=== PATIENT | male | born 1950 | race Caucasian/White ===

== ENCOUNTER 2016-10-30 14:47 | Inpatient (IN) | payer MEDICARE, OTHER ==
[~2016-10-30] VITALS: Ht 170.2 cm; Wt 84.0 kg
[~2016-10-30 14:47] MED LIST: ACET-73 PO; ASPI-605 PO; ATOR10TA PO; BISA10SU8 RC; CARB200T PO; CRAN3875 PO; DEXT15DR6 EACHEYE; DOCU-25 PO; FERR1TAB44 PO; GUAI-671 PO; LEVE250T2 PO; LEVOTHYROXINE INJ 100 MCG VIAL IV SCH; MAGN2400 PO; METH1TAB PO; NA P133E RC; OMEP20TA68 PO; POLY255P2 PO; SENN-18 PO; SERT50TA PO; TAMS0.4C34 PO; mylanta
--- NOTE | 2016-10-30 14:47 | NUR ---
BIB PRIVATE EMT FROM [facility] FOR UPPER EXTREMITY TWITCHING . PLACED ON MONITOR. AWAITING MD ORDER
--- NOTE | 2016-10-30 15:00 | NUR ---
MAT #20 IV ACCESS. BLOOD SAMPLE COLLECTED SENT TO LAB
[2016-10-30 15:13] LABS: BASOPHILS # (AUTO) 0.2 /CMM (0.0-0.2); BASOPHILS % (AUTO) 2.5 % (0.0-2.0); EOSINOPHILS % (AUTO) 0.5 % (0.0-6.0); HEMATOCRIT 36 % (39-51); HEMOGLOBIN 11.4 g/dL (13.5-17.5); LYMPHOCYTES # (AUTO) 0.9 /CMM (0.8-4.8); LYMPHOCYTES % (AUTO) 13.5 % (20.0-44.0); MEAN CORPUSCULAR HEMOGLOBIN 32 PG (26.0-33.0); MEAN CORPUSCULAR HGB CONC 32 g/dl (31.0-36.0); MEAN CORPUSCULAR VOLUME 99 fL (80-96); MONOCYTES # (AUTO) 0.2 /CMM (0.1-1.30); MONOCYTES % (AUTO) 2.7 % (2.0-12.0); NEUTROPHILS # (AUTO) 5.4 /CMM (1.8-8.9); NEUTROPHILS % (AUTO) 80.8 % (43.0-81.0); PLATELET COUNT (AUTO) 83 /CMM (150-450); RDW COEFFICIENT OF VARIATION 18.6 (11.5-15.0); WHITE BLOOD COUNT (AUTO) 6.7 K/uL (4.3-11.0)
[2016-10-30] MEDS ORDERED: FLUT16SP16 NS (15:19)
[2016-10-30] MEDS ORDERED: LEVE250T2 PO (15:19)
[2016-10-30] MEDS ORDERED: MAGN400O6 PO (15:19)
[2016-10-30] MEDS ORDERED: ALBU1.257 IH (15:19)
[2016-10-30] MEDS ORDERED: SERT25TA5 PO (15:19)
[2016-10-30] MEDS ORDERED: MULT-659 PO (15:19)
[2016-10-30] MEDS ORDERED: POLY15DR40 EACHEYE (15:19)
[2016-10-30] MEDS ORDERED: BISA10SU8 RC (15:19)
[2016-10-30 15:23] LABS: CALCIUM, SERUM 9.2 mg/dL (8.5-10.1); CREATININE 0.6 mg/dL (0.6-1.3); POTASSIUM 4.7 mmol/L (3.5-5.1)
[2016-10-30 15:29] LABS: ALBUMIN 2.8 g/dL (3.4-5.0); BILIRUBIN,TOTAL 0.3 mg/dL (0.2-1.0); TOTAL PROTEIN, SERUM 6.7 g/dL (6.4-8.2)
--- NOTE | 2016-10-30 15:30 | NUR ---
SANABRIA CATH IN PLACE NO OUTPUT MD AWARE.
--- NOTE | 2016-10-30 15:58 | NUR ---
EKG IN PROGRESS
[2016-10-30] MEDS ORDERED: IV NS 0.9% 500 ML BAG IV ONE (16:00)
--- NOTE | 2016-10-30 16:17 | NUR ---
PATIENT WILL BE ADMITTED INTO [facility]-1.
[2016-10-30 16:19] LABS: BAND % (MANUAL) 8 % (0.0-5.0); LYMPHOCYTES % (MANUAL) 15 % (16-48); NEUTROPHILS % (MANUAL) 74 (42-76)
--- NOTE | 2016-10-30 16:19 | NUR ---
PAGED DR TORRES.
[2016-10-30 16:20] LABS: BASOPHILS % (MANUAL) 0 % (0.0-2.0); EOSINOPHILS % (MANUAL) 1 % (0-4); MONOCYTES % (MANUAL) 2 % (0-11.0)
[2016-10-30 16:35] LABS: TROPONIN I < 0.017 ng/mL (0.00-0.056)
--- NOTE | 2016-10-30 16:35 | NUR ---
GAVE REPORT TO MAINE TORRES [facility] DR VELASCO ADMITTING SEPSIS DX
[2016-10-30 17:00] LABS: THYROID STIMULATING HORMONE 5.893 uIU/mL (0.358-3.74)
[2016-10-30] MEDS ORDERED: IV NS 0.9% 1,000 ML BAG IV ONE ×3 (17:00→18:00)
[2016-10-30] MEDS ORDERED: CLINDAMYCIN 900 MG in IV D5W 50 ML IV ONE (17:00)
[2016-10-30] MEDS ORDERED: VANCOMYCIN 1 GM in IV D5W 250 ML IV ONE ×2 (17:00→18:00)
--- NOTE | 2016-10-30 17:03 | NUR ---
CALLED [employer], DIRECTOR OF OUTSIDE SALES WAS PAGED.
[2016-10-30 17:08] LABS: APPEARANCE,URINE Clear (CLEAR); BILIRUBIN,URINE SMALL (NEGATIVE); BLOOD, URINE Moderate Ery/uL (NEGATIVE); COLOR,URINE Yellow (YELLOW); KETONES,URINE Negative (NEGATIVE); LEUKOCYTE ESTERASE ,URINE Small (NEGATIVE); NITRITE, URINE Positive (NEGATIVE); PH,URINE 5.5 (5.0-8.0); PROTEIN,URINE 100 mg/dl (NEGATIVE); UGLUCOSE Negative (NEGATIVE); UROBILINOGEN,URINE 0.2 EU/dL (0.2)
[2016-10-30 17:53] LABS: BACTERIA,URINE Moderate /HPF (None Seen); SQUAMOUS EPITHELIAL CELL,UR Moderate /HPF (None Seen)
[2016-10-30] MEDS ORDERED: ONDANSETRON HCL/PF 4 MG/2 ML VIAL IVP PRN (18:00)
[2016-10-30] MEDS ORDERED: ACETAMINOPHEN 325 MG TABLET PO PRN (18:00)
[2016-10-30] MEDS ORDERED: BISACODYL SUPP (10 MG) 10 MG/SUPP.RECT SUPP.RECT RC PRN (18:00)
[2016-10-30] MEDS ORDERED: MAGNESIUM HYDROXIDE 30 ML UDC PO PRN (18:00)
[2016-10-30] MEDS ORDERED: LORAZEPAM INJ 2 MG/ML VIAL IVP PRN (18:00)
[2016-10-30] MEDS ORDERED: ALBUTEROL HALF STRENGTH 1.25 MG/3 ML VIAL.NEB IH PRN (18:00)
[2016-10-30] MEDS ORDERED: NA PHOS,M-B/NA PHOS,DI-BA 1 EA ENEMA RC PRN (18:00)
[2016-10-30 18:10] VITALS: BP 138/80
[2016-10-30] MEDS ORDERED: FEE PK DOSING 1 MIN EA MC ONE (18:23)
--- NOTE | 2016-10-30 18:30 | NUR ---
PATIENT RECEIVED FROM ER VIA STRETCHER NONVERBAL,FAMILY AT BEDSIDE,NEW IV STATED AT AT LEFT HAND #22.IVF COTINUED .
--- NOTE | 2016-10-30 18:31 | NUR ---
WILL ENDORSE TO NIGHT RN FOR CONTINUITY OF ADMISSION PROCESS AND ORDERS.
[2016-10-30 18:52] VITALS: BP 138/80
[2016-10-30] MEDS: POLYVINYL ALCOHOL 15 ML BOTTLE EACHEYE SCH (19:07)
[2016-10-30] MEDS: methylPREDNISolone SOD SUCC 125 MG/2ML VIAL IV SCH (19:07)
[2016-10-30 19:08] LABS: IRON, SERUM 66 ug/dl (50-175); TOTAL IRON BINDING CAPACITY 251 ug/dl (250-450)
[2016-10-30] MEDS: PIPERACILLIN /TAZOBACTAM 3.375 G in IV D5W 50 ML IV SCH (19:34)
--- NOTE | 2016-10-30 19:50 | NUR ---
RN INITIAL NOTE; PT ON THE BED RESTING WITHOUT ANY DISTRESS . PT IS NON -VERBAL , RESPONSE TO PAIN . BREATHING EVEN AND UNLABORED ON 3 LPM VIA NC. TELE MONITOR SHOWING SB HR 50 AT THIS TIME . LW 22 G PERIPHERAL IV INTACT AND PATENT . F/C INTACT WITH MINIMAL OUTPUT AT THIS TIME . TEMP. NOTED 92.7 F AT THIS TIME, BEAR HUGER ON . BED IN THE LOWEST/LOCKED POSITION, SAFETY MEASURES APPLIED. WILL TURN AND REPOSITION Q2H . WILL CONTINUE TO MONITOR .
[2016-10-30 20:00] VITALS: BP 128/78
[2016-10-30] MEDS: VANCOMYCIN 0.75 GM in IV D5W 250 ML IV SCH ×2 (20:00→20:47)
--- NOTE | 2016-10-30 20:50 | NUR ---
RN NOTE; VANCOMYCIN DOSE @ 2000 HELD DUE TO TOO CLOSE TO GIVE FROM PREVIOUS DOSE . WILL GIVE 0400 AM DOSE .
[2016-10-30] MEDS: LEVETIRACETAM (250 MG) 250 MG TABLET PO SCH (21:00)
[2016-10-30] MEDS: ATORVASTATIN 10 MG TABLET PO SCH (22:00)
[2016-10-31] VITALS: BP 131/77
[2016-10-31] MEDS: PIPERACILLIN /TAZOBACTAM 3.375 G in IV D5W 50 ML IV SCH ×4 (02:47→21:18)
[2016-10-31 04:00] VITALS: BP 93/56
[2016-10-31] MEDS: VANCOMYCIN 0.75 GM in IV D5W 250 ML IV SCH ×3 (04:51→19:38)
[2016-10-31 06:45] LABS: BASOPHILS % (AUTO) 0.3 % (0.0-2.0); EOSINOPHILS % (AUTO) 0.2 % (0.0-6.0); HEMATOCRIT 32 % (39-51); HEMOGLOBIN 10.4 g/dL (13.5-17.5); LYMPHOCYTES # (AUTO) 0.9 /CMM (0.8-4.8); MEAN CORPUSCULAR HEMOGLOBIN 33 PG (26.0-33.0); MEAN CORPUSCULAR HGB CONC 33 g/dl (31.0-36.0); MEAN CORPUSCULAR VOLUME 100 fL (80-96); MONOCYTES # (AUTO) 0.1 /CMM (0.1-1.30); MONOCYTES % (AUTO) 2.6 % (2.0-12.0); NEUTROPHILS % (AUTO) 79.9 % (43.0-81.0); PLATELET COUNT (AUTO) 78 /CMM (150-450); RDW COEFFICIENT OF VARIATION 18.6 (11.5-15.0)
--- NOTE | 2016-10-31 07:04 | NUR ---
RN EOS NOTE; PT REMAINED STABLE DURING THE SHIFT. NO ANY DISTRESS NOTED. SR 60s ON TELE MONITOR , WITH ADEQUATE URINE OUTPUT. SAFETY MEASURES APPLIED. TOTAL CARE RENDERED .WILL ENDORSE TO NEXT SHIFT RN FOR CONTINUITY OF CARE.
--- NOTE | 2016-10-31 07:10 | NUR ---
[facility] RN NOTE: RECEIVED PATIENT RESTING COMFORTABLY IN BED. PT IS NONVERBAL, RESPIRATIONS EVEN AND UNLABORED WITH NO SOB NOTED ON 3L O2 VIA NC. ON TELE WITH SR 64. LW 22G AND RH 20G INTACT AND PATENT. FC DRAINING TO GRAVITY WITH YELLOW URINE. WARMING BLANKET ON PT. SKIN WARM TO TOUCH. BED LOW, LOCKED WITH CALL LIGHT WITHIN REACH. ALL NEEDS MET AND ANTICIPATED. WILL CONT TO MONITOR.
[2016-10-31 07:14] LABS: ALBUMIN 2.5 g/dL (3.4-5.0); BILIRUBIN,TOTAL 0.2 mg/dL (0.2-1.0); CALCIUM, SERUM 8.6 mg/dL (8.5-10.1); CREATINE KINASE MB 2.8 ng/mL (0-3.6); CREATININE 0.6 mg/dL (0.6-1.3); POTASSIUM 4.6 mmol/L (3.5-5.1); TOTAL PROTEIN, SERUM 6.3 g/dL (6.4-8.2)
[2016-10-31 07:50] LABS: INR 0.97 (0.87-1.13); PROTHROMBIN TIME 10.4 SECS (9.5-12.7)
[2016-10-31 08:00] VITALS: BP_SYST 107; BP_SYST 96; BP_SYST 97; BP_DIAS 57; BP_DIAS 70
[2016-10-31] MEDS: DOCUSATE SODIUM 100 MG CAPSULE PO SCH (08:05)
[2016-10-31] MEDS: TAMSULOSIN 0.4 MG CAP.SR.24H PO SCH (08:05)
[2016-10-31] MEDS: SERTRALINE HCL 25 MG TABLET PO SCH (08:05)
[2016-10-31] MEDS: ASPIRIN EC 81 MG TABLET.DR PO SCH (08:05)
[2016-10-31] MEDS: LEVETIRACETAM (250 MG) 250 MG TABLET PO SCH ×2 (08:06→21:00)
[2016-10-31] MEDS: POLYVINYL ALCOHOL 15 ML BOTTLE EACHEYE SCH ×2 (08:21→17:29)
[2016-10-31] MEDS: FLUTICASONE PROPIONATE 16 GM BOTTLE NS SCH (08:21)
[2016-10-31] MEDS: Z GUARD REMEDY 2 OZ OINT TP SCH (08:22)
[2016-10-31] MEDS: LEVOTHYROXINE INJ 100 MCG VIAL IV SCH (08:22)
[2016-10-31] MEDS: methylPREDNISolone SOD SUCC 125 MG/2ML VIAL IV SCH ×3 (08:41→17:31)
[2016-10-31] MEDS: PANTOPRAZOLE 40 MG VIAL IV SCH (08:41)
--- NOTE | 2016-10-31 08:59 | NUR ---
[facility] RN NOTE: ENCHO TECH AT BEDSIDE.
[2016-10-31] MEDS ORDERED: CARBAMAZEPINE 200 MG TABLET PO SCH (09:00)
[2016-10-31] MEDS ORDERED: Z GUARD REMEDY 2 OZ OINT TP SCH (09:00)
--- NOTE | 2016-10-31 09:00 | NUR ---
[facility] RN NOTE: BODY TEMPERATURE WITHIN NORMAL RANGE. WARMING BLANKET HELD.
--- NOTE | 2016-10-31 09:45 | NUR ---
[facility] RN NOTE: PATIENT TAKEN TO RADIOLOGY FOR CT HEAD.
[2016-10-31 09:57] LABS: LYMPHOCYTES % (MANUAL) 12 % (16-48); MONOCYTES % (MANUAL) 2 % (0-11.0); NEUTROPHILS % (MANUAL) 86 (42-76)
--- NOTE | 2016-10-31 10:20 | NUR ---
[facility] RN NOTE: PATIENT BACK FROM RADIOLOGY.
[2016-10-31 12:00] VITALS: BP 123/69
--- NOTE | 2016-10-31 12:30 | NUR ---
TRANSCRIPTIONIST NOTE: VERIFIED WITH PHARMACY, OK TO GIVE 1200 VANCOMYCIN IV. LAB ORDER FOR LATER ON TODAY.
[2016-10-31 16:00] VITALS: BP 133/86
--- NOTE | 2016-10-31 16:30 | NUR ---
COMBAT ENGINEER NOTE: FINISHER OPERATOR AT BEDSIDE.
[2016-10-31] MEDS: IV D5/ 0.9% NACL 1,000 ML IV PRN (17:34)
--- NOTE | 2016-10-31 18:43 | NUR ---
PLANT OPERATIONS MANAGER NOTE: PATIENT REMAINED NONVERBAL WITH NO SIGNIFICANT CHANGES DURING SHIFT. RESPIRATIONS EVEN AND UNLABORED. ON TELE MONITOR WITH SR HIGH 70S. RH 20G PATENT AND INTACT. LW G22 D5NS RUNNING AT 60CC/HR. FC DRAINING TO GRAVITY WITH YELLOW URINE. ORDERS CARRIED OUT. WILL ENDORSE TO LENS POLISHER HAND NURSE FOR NIRMALA.
--- NOTE | 2016-10-31 19:15 | NUR ---
RN OPENING NOTES REPORT RECEIVED FROM AM RN. PATIENT NON-VERBAL BUT RESPONSIVE TO VERBAL AND TACTILE STIMULI. UNABLE TO MAKE NEEDS KNOWN. ON O2 3L VIA NC SAT @ 96%. NO RESPIRATORY DISTRESS OR SOB NOTED. SECRETION AUDIBLE AND SUCTIONED MODERATE AMOUNT W/ PRODUCTIVE COUGH. ON TELE SINUS RHYTHM. LEFT WRIST IV 22G CDI W/ D5 NS @ 60 ML/HR AND RIGHT HAND IV #20G CDI, SALINE LOCK. SANABRIA CATH INTACT AND DRAINING YELLOW URINE. SEIZURE PRECAUTION IN PLACE W/ PADDED RAILS. SAFETY MEASURES IN PLACE, SIDE RAILS UP, BED LOCKED AND IN LOWEST POSITION. WILL CONTINUE TO MONITOR.
[2016-10-31 20:00] VITALS: BP 124/67
[2016-10-31] MEDS: ATORVASTATIN 10 MG TABLET PO SCH (21:12)
[2016-11-01] VITALS (7 sets, daily range): BP systolic 99–168; BP diastolic 56–77
[2016-11-01] MEDS: PIPERACILLIN /TAZOBACTAM 3.375 G in IV D5W 50 ML IV SCH ×2 (01:35→08:44)
[2016-11-01] MEDS: VANCOMYCIN 0.75 GM in IV D5W 250 ML IV SCH (03:45)
--- NOTE | 2016-11-01 05:00 | NUR ---
RN NOTES PATIENT NOTED W/ MULTIPLE BLISTERS ON THE LEFT HAND AND LEFT FOREARM. ELEVATED EXTREMITY W/ PILLOW, APPLIED WARM COMPRESS. CHECKED VS WNL. CONTINOUS MONITORING Addendum: 11/01/16 at 0800 by ZECHARIAH BURNS RN CALLED NIRALI, ON-CALL DR MARISOL PULLIAM. SPOKE W/ DR DAMON AND RECEIVED ORDER FOR WOUND CARE CONSULT AND WILL F/U.
[2016-11-01] MEDS: MORPHINE SULFATE INJ 2 MG/ML DISP.SYRIN IV PRN (06:43)
--- NOTE | 2016-11-01 07:35 | NUR ---
RN NOTES RECEIVED PT RESTING IN BED, HOB ELEVATED. PT IS AWAKE, EYES OPEN, NON-VERBAL. ON O2@3LPM VIA NC SAT @ 96%. NO RESPIRATORY DISTRESS OR SOB NOTED. SECRETIONS AUDIBLE, SUCTIONED FOR CLERANCE. ON TELE SB WITH BBB HR 58. LEFT WRIST OLD IV SITE NOTED WITH MULTIPLE FLUID FILLED BLISTER AROUND THE SITE, PER REPORT MD WAS NOTIFIED. WILL MONITOR AREA, KEPT AFFECTED AREA ELEVATED. R HAND 22G CDI W/ ONGOING IVF D5NS @ 60ML/HR. SANABRIA CATH INTACT DRAINING YELLOW URINE CONNECTED TO CLOSED SYSTEM. REPOSITIONED FOR COMFORT, SEIZURE PRECAUTION OBSERVED, W/ PADDED RAILS. SAFETY MEASURES IN PLACE, SIDE RAILS UP, BED LOCKED AND IN LOWEST POSITION. WILL CONTINUE TO MONITOR.
[2016-11-01] MEDS: ASPIRIN EC 81 MG TABLET.DR PO SCH (08:11)
[2016-11-01] MEDS: LEVETIRACETAM (250 MG) 250 MG TABLET PO SCH ×2 (08:11→21:00)
[2016-11-01] MEDS: TAMSULOSIN 0.4 MG CAP.SR.24H PO SCH (08:11)
[2016-11-01] MEDS: DOCUSATE SODIUM 100 MG CAPSULE PO SCH (08:11)
[2016-11-01] MEDS: SERTRALINE HCL 25 MG TABLET PO SCH (08:11)
[2016-11-01 08:27] LABS: CALCIUM, SERUM 9.1 mg/dL (8.5-10.1); CREATININE 0.8 mg/dL (0.6-1.3); POTASSIUM 4.1 mmol/L (3.5-5.1)
[2016-11-01] MEDS: PANTOPRAZOLE 40 MG VIAL IV SCH (08:43)
[2016-11-01] MEDS: methylPREDNISolone SOD SUCC 125 MG/2ML VIAL IV SCH (08:43)
[2016-11-01] MEDS: LEVOTHYROXINE INJ 100 MCG VIAL IV SCH (08:44)
[2016-11-01] MEDS: FLUTICASONE PROPIONATE 16 GM BOTTLE NS SCH (08:47)
[2016-11-01] MEDS: POLYVINYL ALCOHOL 15 ML BOTTLE EACHEYE SCH ×2 (08:47→17:39)
[2016-11-01] MEDS: Z GUARD REMEDY 2 OZ OINT TP SCH (08:48)
--- NOTE | 2016-11-01 10:01 | NUR ---
RN NOTES SISTER AT BEDSIDE, PLAN OF CARE DISCUSSED. ALL QUESTIONS AND CONCERNS ANSWERED BY RN.
[2016-11-01] MEDS ORDERED: MEROPENEM 1 G in IV NS 0.9% 100 ML IV SCH (14:00)
--- NOTE | 2016-11-01 14:00 | NUR ---
RN NOTES SPOKE WITH DR SCHMITT, CURRENT EVENTS REPORTED TO MD. DR SCHMITT AWARE OF MULTIPLE BLISTER ON L HAND OLD IV SITE, PER MD CONT TO MONITOR FOR CHANGES AND WAITING FOR WOUND CONSULT.
[2016-11-01] MEDS: BISACODYL SUPP (10 MG) 10 MG/SUPP.RECT SUPP.RECT RC SCH (15:19)
[2016-11-01] MEDS: LACTOBACILLUS RHAMNOSUS GG 1 EACH CAP.SPRINK PO SCH (17:00)
[2016-11-01] MEDS ORDERED: FEE PK DOSING 1 MIN EA MC ONE (18:39)
[2016-11-01] MEDS ORDERED: GENTAMICIN 400 MG in IV D5W 100 ML IV ONE (20:00)
--- NOTE | 2016-11-01 20:00 | NUR ---
ms/rn opening notes patient in bed, awake, eyes open. no s/s of distress. will continue to monitor. Received endorsement from am rn, non verbal , require repositioning,on garnica catheter with rune, left hand site observe w/ improved skin.on atb iv Gentamycin at 1033cc.will continue to monitor.
--- NOTE | 2016-11-01 20:30 | NUR ---
tele/rn notes patient re check vital signs b/p 130/77,pulse 46. ativan returned w/ charge nurse as witness.
[2016-11-01] MEDS: ATORVASTATIN 10 MG TABLET PO SCH (21:11)
[2016-11-01] MEDS: IV D5/ 0.9% NACL 1,000 ML IV PRN (23:19)
[2016-11-02] VITALS (8 sets, daily range): BP systolic 114–162; BP diastolic 49–81
--- NOTE | 2016-11-02 06:17 | NUR ---
Ms/rn closing notes Patient in bed, awake, alert x1 require frequent monitoring for safety, nassist w/ suctioning as needed. Patient non verbal and on npo status. no grimace and no guarding,. with garnica catheter draining at 300 cc dark yellow.call lights. will endorse to am rn regarding plan of care.
[2016-11-02 07:08] LABS: BASOPHILS # (AUTO) 0.1 /CMM (0.0-0.2); BASOPHILS % (AUTO) 0.8 % (0.0-2.0); EOSINOPHILS % (AUTO) 0.5 % (0.0-6.0); HEMATOCRIT 33 % (39-51); HEMOGLOBIN 10.9 g/dL (13.5-17.5); LYMPHOCYTES # (AUTO) 1.7 /CMM (0.8-4.8); LYMPHOCYTES % (AUTO) 27.5 % (20.0-44.0); MEAN CORPUSCULAR HEMOGLOBIN 32 PG (26.0-33.0); MEAN CORPUSCULAR HGB CONC 33 g/dl (31.0-36.0); MEAN CORPUSCULAR VOLUME 98 fL (80-96); MONOCYTES # (AUTO) 0.7 /CMM (0.1-1.30); MONOCYTES % (AUTO) 11.1 % (2.0-12.0); NEUTROPHILS # (AUTO) 3.8 /CMM (1.8-8.9); NEUTROPHILS % (AUTO) 60.1 % (43.0-81.0); PLATELET COUNT (AUTO) 73 /CMM (150-450); RDW COEFFICIENT OF VARIATION 18.5 (11.5-15.0); RED BLOOD CELL COUNT(AUTO) 3.39 MIL/uL (4.5-6.0); WHITE BLOOD COUNT (AUTO) 6.3 K/uL (4.3-11.0)
[2016-11-02 07:27] LABS: CALCIUM, SERUM 8.6 mg/dL (8.5-10.1); CREATININE 0.5 mg/dL (0.6-1.3); MAGNESIUM 1.8 mg/dL (1.8-2.4); PHOSPHORUS 2.4 mg/dL (2.5-4.9); POTASSIUM 3.9 mmol/L (3.5-5.1)
--- NOTE | 2016-11-02 07:41 | NUR ---
AM RN NOTE Received patient resting in his bed, no acute distress noted. Pt non-verbal and on NPO status. IV site intact and patent. F/C intact and draining with yellow colored urine. Bed in low locked position. Seizures precautions in place. Will continue to monitor.
[2016-11-02 07:44] LABS: BAND % (MANUAL) 2 % (0.0-5.0); EOSINOPHILS % (MANUAL) 1 % (0-4); LYMPHOCYTES % (MANUAL) 31 % (16-48); MONOCYTES % (MANUAL) 7 % (0-11.0); NEUTROPHILS % (MANUAL) 59 (42-76)
[2016-11-02] MEDS: PANTOPRAZOLE 40 MG VIAL IV SCH (08:28)
[2016-11-02] MEDS: FLUTICASONE PROPIONATE 16 GM BOTTLE NS SCH (08:29)
[2016-11-02] MEDS: Z GUARD REMEDY 2 OZ OINT TP SCH (08:29)
[2016-11-02] MEDS: DOCUSATE SODIUM 100 MG CAPSULE PO SCH (08:30)
[2016-11-02] MEDS: ASPIRIN EC 81 MG TABLET.DR PO SCH (08:30)
[2016-11-02] MEDS: POLYVINYL ALCOHOL 15 ML BOTTLE EACHEYE SCH ×2 (08:30→17:04)
[2016-11-02] MEDS: LEVETIRACETAM (250 MG) 250 MG TABLET PO SCH ×2 (08:31→21:00)
[2016-11-02] MEDS: LACTOBACILLUS RHAMNOSUS GG 1 EACH CAP.SPRINK PO SCH ×2 (08:31→16:21)
[2016-11-02] MEDS: TAMSULOSIN 0.4 MG CAP.SR.24H PO SCH (08:31)
[2016-11-02] MEDS: SERTRALINE HCL 25 MG TABLET PO SCH (08:31)
[2016-11-02] MEDS: LEVOTHYROXINE INJ 100 MCG VIAL IV SCH (08:36)
[2016-11-02] MEDS ORDERED: methylPREDNISolone SOD SUCC 125 MG/2ML VIAL IV SCH (09:00)
--- NOTE | 2016-11-02 10:29 | NUR ---
WOUND CARE CONSULT: PT PRESENTS WITH RESOLVING BLISTERS TO LEFT HAND AND WRIST AREA. NO SIGN OF INFECTION NOTED. DEFER TO MD. PT ALSO NOTED TO HAVE INTACT BLISTER TO LEFT HEEL. RECOMMENDATIONS MADE FOR CARE AND SKIN PROTECTION. DISCUSSED WITH NURSING STAFF. PT ON CARROLL ISOFLEX LOW AIRLOSS BED. WILL SEE J CARLOS. IN AGREEMENT WITH PLAN OF CARE. Addendum: 11/02/16 at 1032 by VIRI BELL WNDNU Amended: Links added.
--- NOTE | 2016-11-02 10:40 | NUR ---
AM RN NOTE Patient noted with intact blister on left heel by size (1.5 cm x 1.5 cm). Seen and assessed by Wound Nurse with new Tx order noted and carried out. Will offload area and will continue to monitor. CN (Radha) made aware. Incident report done.
--- NOTE | 2016-11-02 10:50 | NUR ---
AM RN NOTE Left msg for Sheri (Sister) to call back regarding notification of blister on left heel, awaiting for call back.
--- NOTE | 2016-11-02 10:51 | NUR ---
AM RN NOTE Pt seen and assessed by Speech therapist for ST eval. Pt failed oral speech eval.
--- NOTE | 2016-11-02 13:52 | NUR ---
AM RN NOTE Pt visited by Sister (Dania) made aware about left heel blister.
--- NOTE | 2016-11-02 14:00 | NUR ---
AM RN NOTE Dr. Arreaga made aware about left heel blister.
[2016-11-02] MEDS ORDERED: Sodium Phosphate 15 MMOL in IV D5W 250 ML IV ONE (16:00)
[2016-11-02] MEDS: IV D5/ 0.9% NACL 1,000 ML IV PRN (16:21)
--- NOTE | 2016-11-02 18:21 | NUR ---
AM RN NOTE Pt resting in his bed and private aeronautics commission director at bedside. No acute distress noted. Will conitnue to monitor. MRSA (left nostril) sample obtained per lab request.
--- NOTE | 2016-11-02 19:30 | NUR ---
MS RN NOTES RECEIVED ON BED A/O X1.NON VERBAL.CAREGIVER AT BEDSIDE.NO IV ACCESS PER REPORT.WITH MULTIPLE BLISTERS NOTED ON LEFT ARM OPEN TO AIR.ALSI NOTED BLISTER ON LEFT HEEL,OFFLOAD TO BED.PHILLY MATTRESS IN USED FOR WOUND MANAGEMENT.SEIZURE PRECAUTION OBSERVED.SIDE RAILS PADDED FOR SAFETY.WILL CONTINUE TO MONITOR STATUS.
--- NOTE | 2016-11-02 19:45 | NUR ---
MS RN NOTES NEW SALINE LOCK PLACE ON RIGHT HAND #22,FLUSHED WITH NS AND KEPT PATENT.REPOAIRION PER PROTOCOL FOR SKIN MANAGEMENT.
[2016-11-02] MEDS: ATORVASTATIN 10 MG TABLET PO SCH (21:19)
--- NOTE | 2016-11-02 21:30 | NUR ---
MSRN NOTES DUE PO MEDS HELD,FAILED SWALLOW EVAL.WILL REPEAT IN THE MORNING
[2016-11-02] MEDS: MORPHINE SULFATE INJ 2 MG/ML DISP.SYRIN IV PRN (22:44)
--- NOTE | 2016-11-02 22:44 | NUR ---
MS RN NOTES CRYING WITH FACIAL GRIMACE,MEDICATED WITH MORPHINE 2MG IVP ORDERED.
[2016-11-02] MEDS: LORAZEPAM INJ 2 MG/ML VIAL IVP PRN (23:01)
--- NOTE | 2016-11-02 23:05 | NUR ---
MS RN NOTES STIL VERY ANXIOUS,MEDICATED WITH ATIVAN 1MG IVP ORDERED FOR AGITATION
--- NOTE | 2016-11-03 00:13 | NUR ---
MS RN NOTES AWAKE BUT CALM AT THIS TIME.
[2016-11-03 03:59] VITALS: BP 141/76
[2016-11-03 04:00] VITALS: BP 141/76
--- NOTE | 2016-11-03 06:37 | NUR ---
MS RN NOTES BLOOD DRAW DONE,MORPHINE EFFECTIVE FOR PAIN MANAGEMENT,ATIVAN EFFECTIVE FOR AGITATION,REPOSITION PER PROTOCOL.D/C PLAN BACK TO [facility].IN NO ACUTE DISTRESS.WILL ENDORSE TO DAY NURSE FOR NIRMALA.
--- NOTE | 2016-11-03 07:34 | NUR ---
RN NOTES RECEIVED PATIENT AWAKE ALERT AND ORIENTED X1 PATIENT WITH INCOMPREHENSIBLE SPEECH, YELLING OUT WILL CONTINUE TO MONITOR FOR PAIN MANAGEMENT AND ANXIETY/AGITATION. RESPIRATIONS EVEN AND UNLABORED, DENIES ANY PAIN OR DISCOMFORT AT THIS TIME. PATIENT WITH RIGHT HAND IV ACCESS PATENT AND INTACT, NO REDNESS OR INFILTRATION NOTED. KEPT CLEAN DRY AND COMFORTABLE, CALL LIGHT WITHIN EASY REACH, WILL CONTINUE TO MONITOR AND CONTINUE CURRENT TREATMENT ORDERED
[2016-11-03 07:53] LABS: CALCIUM, SERUM 8.6 mg/dL (8.5-10.1); CREATININE 0.4 mg/dL (0.6-1.3); PHOSPHORUS 2.4 mg/dL (2.5-4.9); POTASSIUM 3.8 mmol/L (3.5-5.1)
[2016-11-03 08:00] VITALS: BP 118/71
[2016-11-03] MEDS: ASPIRIN EC 81 MG TABLET.DR PO SCH (08:36)
[2016-11-03] MEDS: DOCUSATE SODIUM 100 MG CAPSULE PO SCH (08:36)
[2016-11-03] MEDS: LACTOBACILLUS RHAMNOSUS GG 1 EACH CAP.SPRINK PO SCH ×2 (08:36→16:26)
[2016-11-03] MEDS: predniSONE 20 MG TABLET PO SCH (08:37)
[2016-11-03] MEDS: SERTRALINE HCL 25 MG TABLET PO SCH (08:37)
[2016-11-03] MEDS: LEVETIRACETAM (250 MG) 250 MG TABLET PO SCH (08:37)
[2016-11-03] MEDS: TAMSULOSIN 0.4 MG CAP.SR.24H PO SCH (08:37)
--- NOTE | 2016-11-03 08:40 | NUR ---
RN NOTES PATIENT'S TEMPERATURE NOTED AT 85.4, CHECKED X3 SRINIVAS HUGGER AT BEDSIDE PLACED ON PATIENT WILL MAKE MD AWARE AND CONTINUE TO MONITOR ALL OTHER VS WNL
[2016-11-03] MEDS: GENTAMICIN 400 MG in IV D5W 100 ML IV SCH (08:55)
[2016-11-03] MEDS: PANTOPRAZOLE 40 MG VIAL IV SCH (08:55)
[2016-11-03] MEDS: LEVOTHYROXINE INJ 100 MCG VIAL IV SCH (08:55)
[2016-11-03] MEDS: FLUTICASONE PROPIONATE 16 GM BOTTLE NS SCH (08:56)
[2016-11-03] MEDS: Z GUARD REMEDY 2 OZ OINT TP SCH (08:56)
[2016-11-03] MEDS: POLYVINYL ALCOHOL 15 ML BOTTLE EACHEYE SCH ×2 (08:56→17:12)
[2016-11-03] MEDS: BISACODYL SUPP (10 MG) 10 MG/SUPP.RECT SUPP.RECT RC SCH (09:07)
--- NOTE | 2016-11-03 09:15 | NUR ---
RN NOTES NOTED PATIENT'S TEMPERATURE NOW 92.4, WILL CONTINUE TO MONITOR PATIENT AND CONTINUE TREATMENT ORDERED, PATIENT CONTINUES TO HAVE SRINIVAS HUGGER IN PLACE
--- NOTE | 2016-11-03 10:54 | NUR ---
RN NOTES DR. VELASCO MADE AWARE OF PATIENT NOT PASSING SWALLOW EVAL, PER MD CONTINUE TO HOLD PO MEDS AND MEALS, WILL SEE PATIENT, WILL CONTINUE TO MONITOR AT THIS TIME
[2016-11-03] MEDS ORDERED: Sodium Phosphate 7.5 MMOL in IV D5W 100 ML IV ONE (12:00)
[2016-11-03] MEDS: LEVETIRACETAM (500MG) 500 MG in IV NS 0.9% 100 ML IV SCH (13:51)
--- NOTE | 2016-11-03 18:35 | NUR ---
RN NOTES PATIENT AWAKE ALERT AND ORIENTED X1 PATIENT WITH INCOMPREHENSIBLE SPEECH, YELLING OUT AT TIMES, WILL CONTINUE TO MONITOR FOR PAIN MANAGEMENT AND ANXIETY/AGITATION. RESPIRATIONS EVEN AND UNLABORED, IN NO APPARENT PAIN OR DISCOMFORT AT THIS TIME. PATIENT WITH RIGHT HAND IV ACCESS PATENT AND INTACT, PATIENT TO HAVE MIDLINE INSERTION FOR POOR PERIPHERAL IV ACCESS AND CONTINUOUS NEED FOR IV MEDICATIONS AND HYDRATION. KEPT CLEAN DRY AND COMFORTABLE, CALL LIGHT WITHIN EASY REACH, WILL CONTINUE TO MONITOR CAREGIVER AT BEDSIDE, WILL ENDORSE TO NEXT SHIFT FOR CONTINUITY OF CARE
--- NOTE | 2016-11-03 19:30 | NUR ---
MS/RN NOTES RECEIVED PT. LYING IN BED. AWAKE, ALERT AND ORIENTED TO SELF. PT. WITH GARBLED SPEECH. BREATHING EVEN AND UNLABORED ON 2LPM O2 VIA NC. NO SOB, RESPIRATORY DISTRESS OR S/S OF PAIN NOTED AT THIS TIME. PT. WITH RIGHT HAND 22 GAUGE PERIPHERAL IV PRESENT, PATENT AND INTACT. PER DAYSHIFT NURSE AWAITING FOR MIDLINE PLACEMENT. PT. WITH CAREGIVER PRESENT AT BEDSIDE. BED IN LOWEST POSITION, CALL LIGHT WITHIN REACH, SIDE RAILS UP X3, WILL CONTINUE TO MONITOR.
[2016-11-03 20:00] VITALS: BP 115/58
[2016-11-03 20:34] VITALS: BP 115/58
[2016-11-03] MEDS: ATORVASTATIN 10 MG TABLET PO SCH (22:00)
[2016-11-04] MEDS: LEVETIRACETAM (500MG) 500 MG in IV NS 0.9% 100 ML IV SCH ×2 (01:13→12:00)
[2016-11-04] MEDS: IV D5/ 0.9% NACL 1,000 ML IV PRN (01:13)
[2016-11-04] MEDS: LORAZEPAM INJ 2 MG/ML VIAL IVP PRN (03:24)
[2016-11-04 04:00] VITALS: BP_SYST 154; BP_SYST 167; BP_DIAS 82; BP_DIAS 91
--- NOTE | 2016-11-04 06:56 | NUR ---
MS/RN NOTES PT. LYING IN BED RESTING. BREATHING EVEN AND UNLABORED ON 2LPM O2 VIA NC. NO SOB, RESPIRATORY DISTRESS OR S/S OF PAIN NOTED AT THIS TIME. PT. WITH RIGHT HAND 22 GAUGE PERIPHERAL IV PRESENT, PATENT AND INTACT. PT. WITH RIGHT UPPER ARM MIDLINE PRESENT, PATENT AND INTACT ADMINISTERING TO PT. D5NS @ 60 ML/HR. ALL PT. NEEDS MET. PT. OFFLOADED. TURNED AND REPOSITIONED Q2H AND NEEDED. BED IN LOWEST POSITION, CALL LIGHT WITHIN REACH, SIDE RAILS UP X3, WILL ENDORSE TO DAYSNEFT NURSE FOR CONTINUITY OF CARE.
[2016-11-04 07:17] LABS: BASOPHILS % (AUTO) 0.2 % (0.0-2.0); EOSINOPHILS # (AUTO) 0.1 /CMM (0.0-0.7); EOSINOPHILS % (AUTO) 2.3 % (0.0-6.0); HEMATOCRIT 32 % (39-51); HEMOGLOBIN 10.8 g/dL (13.5-17.5); LYMPHOCYTES # (AUTO) 1.4 /CMM (0.8-4.8); LYMPHOCYTES % (AUTO) 27.3 % (20.0-44.0); MEAN CORPUSCULAR HEMOGLOBIN 33 PG (26.0-33.0); MEAN CORPUSCULAR HGB CONC 34 g/dl (31.0-36.0); MEAN CORPUSCULAR VOLUME 99 fL (80-96); MONOCYTES # (AUTO) 0.3 /CMM (0.1-1.30); MONOCYTES % (AUTO) 6.6 % (2.0-12.0); NEUTROPHILS # (AUTO) 3.2 /CMM (1.8-8.9); NEUTROPHILS % (AUTO) 63.6 % (43.0-81.0); PLATELET COUNT (AUTO) 88 /CMM (150-450); RDW COEFFICIENT OF VARIATION 18.1 (11.5-15.0); RED BLOOD CELL COUNT(AUTO) 3.22 MIL/uL (4.5-6.0); WHITE BLOOD COUNT (AUTO) 5.1 K/uL (4.3-11.0)
--- NOTE | 2016-11-04 07:40 | NUR ---
RN NOTES RECEIVED PATIENT IN BED, AWAKE, HOB ELEVATED, NO SOB OR DISTRESS NOTED. A/O X 1, NON-VERBAL. ON O2 2 LPM VIA NC AND TOLERATED WELL. IV INTACT AND PATENT. KEPT PATIENT CLEAN AND COMFORTABLE IN BED, CALL LIGHT WITHIN PATIENT REACH, WILL CONTINUE TO MONITOR ACCORDINGLY.
[2016-11-04 07:49] LABS: CALCIUM, SERUM 8.5 mg/dL (8.5-10.1); CREATININE 0.4 mg/dL (0.6-1.3); MAGNESIUM 1.6 mg/dL (1.8-2.4); PHOSPHORUS 2.8 mg/dL (2.5-4.9); POTASSIUM 3.3 mmol/L (3.5-5.1)
[2016-11-04 08:00] VITALS: BP 155/65
[2016-11-04 08:24] LABS: EOSINOPHILS % (MANUAL) 1 % (0-4); LYMPHOCYTES % (MANUAL) 28 % (16-48); MONOCYTES % (MANUAL) 5 % (0-11.0); NEUTROPHILS % (MANUAL) 66 (42-76)
[2016-11-04] MEDS: LEVOTHYROXINE INJ 100 MCG VIAL IV SCH (08:36)
[2016-11-04] MEDS: PANTOPRAZOLE 40 MG VIAL IV SCH (08:38)
[2016-11-04] MEDS: POLYVINYL ALCOHOL 15 ML BOTTLE EACHEYE SCH ×2 (08:39→16:49)
[2016-11-04] MEDS: Z GUARD REMEDY 2 OZ OINT TP SCH (08:40)
[2016-11-04] MEDS: ASPIRIN EC 81 MG TABLET.DR PO SCH (08:40)
[2016-11-04] MEDS: DOCUSATE SODIUM 100 MG CAPSULE PO SCH (08:40)
[2016-11-04] MEDS: FLUTICASONE PROPIONATE 16 GM BOTTLE NS SCH (08:40)
[2016-11-04] MEDS: LACTOBACILLUS RHAMNOSUS GG 1 EACH CAP.SPRINK PO SCH ×2 (08:41→16:49)
[2016-11-04] MEDS: predniSONE 20 MG TABLET PO SCH (08:41)
[2016-11-04] MEDS: SERTRALINE HCL 25 MG TABLET PO SCH (08:41)
[2016-11-04] MEDS: TAMSULOSIN 0.4 MG CAP.SR.24H PO SCH (08:41)
--- NOTE | 2016-11-04 11:25 | NUR ---
RN NOTES PATIENT IS LYING DOWN IN BED WITH NO SOB, MOM AND SISTER AT BED SIDE.
[2016-11-04] MEDS ORDERED: POTASSIUM CHLORIDE 20 MEQ TAB.PRT.SR PO SCH (11:30)
[2016-11-04] MEDS: Magnesium 1GM/D5W 100ML PREMIX 100 ML IV SCH ×2 (13:27→14:31)
[2016-11-04] MEDS ORDERED: Magnesium 1GM/D5W 100ML PREMIX 100 ML IV SCH (14:30)
[2016-11-04] MEDS: POTASSIUM CL. PREMIX PERIPHER. 50 ML IV SCH ×2 (15:41→16:48)
--- NOTE | 2016-11-04 18:33 | NUR ---
RN NOTES ALL NEEDS PROVIDED, ATTENDED, AND ANTICIPATED. KEPT PATIENT CLEAN AND COMFORTABLE IN BED, CALL LIGHT WITHIN PATIENT REACH, WILL CONTINUE TO MONITOR ACCORDINGLY. ENDORSED TO NEXT SHIFT RN TO CONTINUE CARE.
--- NOTE | 2016-11-04 19:25 | NUR ---
RN NOTES RECEIVED PATIENT IN BED, AWAKE WITH CAREGIVER AT BED SIDE. A/O X 1. ON O2 2 LPM VIA NC AND TOLERATED WELL, O2 SAT IS 99 % AT THIS TIME. IV SITE ON RIGHT HAND AND WESLEY MIDLINE INTACT AND PATENT,, NO S/S OF INFILTRATION NOTED. IVF INFUSING WELL. FC IS INTACT AND PATENT DRAINING WELL WITH YELLOW URINE. ASPIRATION PRECAUTIONS OBSERVED. KEPT PATIENT CLEAN AND COMFORTABLE. BED ON LOWEST LEVEL. SAFETY PRECAUTIONS OBSERVED. CALL LIGHT WITHIN REACH, WILL CONTINUE TO MONITOR.
[2016-11-04 20:00] VITALS: BP 130/82
[2016-11-04] MEDS: GENTAMICIN 400 MG in IV D5W 100 ML IV SCH (21:11)
[2016-11-04] MEDS: SILVER SULFADIAZINE CREAM 25 GM TUBE TP SCH (21:14)
[2016-11-04] MEDS: ATORVASTATIN 10 MG TABLET PO SCH (21:15)
[2016-11-05] MEDS: LEVETIRACETAM (500MG) 500 MG in IV NS 0.9% 100 ML IV SCH ×2 (00:57→13:34)
[2016-11-05 04:00] VITALS: BP 142/74
[2016-11-05] MEDS: IV D5/ 0.9% NACL 1,000 ML IV PRN (05:16)
[2016-11-05 06:59] LABS: BASOPHILS % (AUTO) 0.1 % (0.0-2.0); EOSINOPHILS # (AUTO) 0.2 /CMM (0.0-0.7); EOSINOPHILS % (AUTO) 3.1 % (0.0-6.0); HEMATOCRIT 32 % (39-51); HEMOGLOBIN 10.8 g/dL (13.5-17.5); LYMPHOCYTES # (AUTO) 1.2 /CMM (0.8-4.8); LYMPHOCYTES % (AUTO) 23.4 % (20.0-44.0); MEAN CORPUSCULAR HEMOGLOBIN 33 PG (26.0-33.0); MEAN CORPUSCULAR HGB CONC 33 g/dl (31.0-36.0); MEAN CORPUSCULAR VOLUME 99 fL (80-96); MONOCYTES # (AUTO) 0.4 /CMM (0.1-1.30); MONOCYTES % (AUTO) 8.2 % (2.0-12.0); NEUTROPHILS # (AUTO) 3.4 /CMM (1.8-8.9); NEUTROPHILS % (AUTO) 65.2 % (43.0-81.0); PLATELET COUNT (AUTO) 107 /CMM (150-450); RDW COEFFICIENT OF VARIATION 18.3 (11.5-15.0); RED BLOOD CELL COUNT(AUTO) 3.25 MIL/uL (4.5-6.0); WHITE BLOOD COUNT (AUTO) 5.2 K/uL (4.3-11.0)
--- NOTE | 2016-11-05 07:07 | NUR ---
RN NOTES PATIENT IN BED, AWAKE. A/O X 1. ON O2 2 LPM VIA NC AND TOLERATED WELL, O2 SAT IS 98 % AT THIS TIME. IV SITE ON RIGHT HAND AND WESLEY MIDLINE INTACT AND PATENT,, NO S/S OF INFILTRATION NOTED. IVF INFUSING WELL. FC IS INTACT AND PATENT DRAINING WELL WITH YELLOW URINE. ASPIRATION PRECAUTIONS OBSERVED. KEPT PATIENT CLEAN AND COMFORTABLE. BED ON LOWEST LEVEL. SAFETY PRECAUTIONS OBSERVED. CALL LIGHT WITHIN REACH, ALL NEEDS ATTENDED AND MET. WILL ENDORSE TO NEXT SHIFT ACCORDINGLY.
[2016-11-05 08:00] VITALS: BP 104/71
--- NOTE | 2016-11-05 08:00 | NUR ---
AM RN NOTES RECEIVED PT IN STABLE CONDITION,RESTING IN BED, REPOSITIONED FOR COMFORT WITH HOB ELEVATED, NO SOB OR DISTRESS NOTED, NO PAIN OR DISCOMFORT, PT IN NPO, WILL MONITOR.
[2016-11-05 08:07] LABS: CALCIUM, SERUM 8.3 mg/dL (8.5-10.1); CREATININE 0.5 mg/dL (0.6-1.3); POTASSIUM 3.8 mmol/L (3.5-5.1)
[2016-11-05] MEDS: LEVOTHYROXINE INJ 100 MCG VIAL IV SCH (08:54)
[2016-11-05] MEDS: PANTOPRAZOLE 40 MG VIAL IV SCH (08:54)
[2016-11-05] MEDS: FLUTICASONE PROPIONATE 16 GM BOTTLE NS SCH (08:55)
[2016-11-05] MEDS: POLYVINYL ALCOHOL 15 ML BOTTLE EACHEYE SCH ×2 (08:55→17:05)
[2016-11-05] MEDS: ASPIRIN EC 81 MG TABLET.DR PO SCH (08:56)
[2016-11-05] MEDS: DOCUSATE SODIUM 100 MG CAPSULE PO SCH (08:56)
[2016-11-05] MEDS: TAMSULOSIN 0.4 MG CAP.SR.24H PO SCH (08:56)
[2016-11-05] MEDS: predniSONE 20 MG TABLET PO SCH (08:56)
[2016-11-05] MEDS: LACTOBACILLUS RHAMNOSUS GG 1 EACH CAP.SPRINK PO SCH ×2 (08:56→16:26)
[2016-11-05] MEDS: SERTRALINE HCL 25 MG TABLET PO SCH (08:56)
[2016-11-05] MEDS: Z GUARD REMEDY 2 OZ OINT TP SCH (08:57)
[2016-11-05] MEDS: BISACODYL SUPP (10 MG) 10 MG/SUPP.RECT SUPP.RECT RC SCH (08:57)
[2016-11-05] MEDS: SILVER SULFADIAZINE CREAM 25 GM TUBE TP SCH ×2 (08:57→17:05)
[2016-11-05] MEDS: LORAZEPAM INJ 2 MG/ML VIAL IVP PRN (11:21)
[2016-11-05 12:00] VITALS: BP 141/71
[2016-11-05 16:00] VITALS: BP 129/52
--- NOTE | 2016-11-05 18:05 | NUR ---
RN NOTES PER PAMELA VERDUZCO NURSE CHEMICAL DEPENDENCY, VERBAL ORDERS WERE GIVEN TO CHANGE PT.'S IV FLUIDS TO D10 NS 60 ML/HR DUE TO PT.'S BLOOD SUGAR LOWERING.
[2016-11-05] MEDS ORDERED: Sodium Chloride 154 MEQ in IV 10% DEXTROSE 1,000 ML IV PRN (18:30)
--- NOTE | 2016-11-05 18:58 | NUR ---
PT IN STABLE CONDITION, NO SOB OR DISTRESS NOTED, NO PAIN OR DISCOMFORT, SITTER AT BEDSIDE, WILL INDORSE TO NEXT SHIFT FOR NIRMALA.
[2016-11-05 20:00] VITALS: BP 135/78
[2016-11-05] MEDS: ATORVASTATIN 10 MG TABLET PO SCH (21:28)
[2016-11-06] MEDS: LEVETIRACETAM (500MG) 500 MG in IV NS 0.9% 100 ML IV SCH ×2 (00:45→12:35)
[2016-11-06 04:00] VITALS: BP 138/84
--- NOTE | 2016-11-06 07:30 | NUR ---
MS RN NOTE: WOUND CARE NURSE AT BEDSIDE.
--- NOTE | 2016-11-06 07:30 | NUR ---
MS RN NOTE: RECEIVED PATIENT RESTING IN BED. PATIENT IS NONVERBAL. ON O2 2 LPM VIA NC, RESPIRATIONS EVEN AND UNLABORED WITH NO SOB NOTED. RH #22 AND WESLEY MIDLINE PATENT AND INTACT. FC DRAINING TO GRAVITY. HOB ELEVATED. WARMING BLANKET IN PLACE. BED LOW, LOCKED WITH CALL LIGHT WITHIN REACH. WILL CONT TO MONITOR FOR NIRMALA.
[2016-11-06 08:00] VITALS: BP_SYST 150; BP_SYST 167; BP_DIAS 72; BP_DIAS 75
--- NOTE | 2016-11-06 08:08 | NUR ---
WOUND CARE CONSULT/FOLLOWUP: PT SEEN FOR RE-EVALUATION OF LEFT HAND AND ARM BLISTERS. LARGE AREA WITH OPEN RED BLISTERS NOTED WITH SURROUNDING REDNESS. SMALL AMOUNT OF SEROSANGUINOUS DRAINAGE NOTED, NO ODOR. DR MANCIA WAS CONSULTED AND ORDERS RECEIVED TO DC SILVADENE AND USE XEROFORM DSG. PT NOTED TO HAVE EDEMA TO LOWER EXTREMITIES AND CONTINUES TO PRESENT WITH INTACT BLISTER TO LEFT HEEL. RECOMMENDATIONS AND ORDERS DISCUSSED WITH NURSING STAFF. IN AGREEMENT WITH PLAN OF CARE. Addendum: 11/06/16 at 0811 by VIRI BELL WNDNU Amended: Links added.
[2016-11-06] MEDS: DOCUSATE SODIUM 100 MG CAPSULE PO SCH ×2 (09:00→10:05)
[2016-11-06] MEDS: TAMSULOSIN 0.4 MG CAP.SR.24H PO SCH ×2 (09:00→10:05)
[2016-11-06] MEDS: SERTRALINE HCL 25 MG TABLET PO SCH ×2 (09:00→10:05)
[2016-11-06] MEDS: ASPIRIN EC 81 MG TABLET.DR PO SCH ×2 (09:00→10:05)
[2016-11-06] MEDS: predniSONE 20 MG TABLET PO SCH ×2 (09:00→10:05)
[2016-11-06] MEDS: LACTOBACILLUS RHAMNOSUS GG 1 EACH CAP.SPRINK PO SCH ×3 (09:00→17:00)
[2016-11-06] MEDS ORDERED: GENTAMICIN 400 MG in IV D5W 100 ML IV SCH (10:00)
[2016-11-06] MEDS: LEVOTHYROXINE INJ 100 MCG VIAL IV SCH (10:05)
[2016-11-06] MEDS: PANTOPRAZOLE 40 MG VIAL IV SCH (10:05)
[2016-11-06] MEDS: FLUTICASONE PROPIONATE 16 GM BOTTLE NS SCH (10:06)
[2016-11-06] MEDS: Z GUARD REMEDY 2 OZ OINT TP SCH (10:07)
--- NOTE | 2016-11-06 10:48 | NUR ---
MS RN NOTE: PER PHARM, NEED TO MAKE 1000 ORDER FOR IV GENTAMICIN. ALSO NOTIFIED OF ARTIFICIAL TEARS ORDER.
[2016-11-06] MEDS: POLYVINYL ALCOHOL 15 ML BOTTLE EACHEYE SCH ×2 (12:20→17:31)
[2016-11-06 16:00] VITALS: BP 166/79
[2016-11-06] MEDS ORDERED: LACT1CAP72 PO (16:54)
[2016-11-06] MEDS ORDERED: RXGEN XX (16:54)
[2016-11-06] MEDS ORDERED: LORA2VIA11 IVP (16:54)
[2016-11-06] MEDS ORDERED: PRED20TA PO (16:54)
--- NOTE | 2016-11-06 19:30 | NUR ---
MS RN NOTE: COMFORT MEASURES PROVIDED TO PATIENT. WESLEY MIDLINE INTACT AND PATENT. FC DRAINING TO GRAVITY. HOB ELEVATED. BED LOW, LOCKED WITH CALL LIGHT WITHIN REACH. ORDERS CARRIED OUT. AWAITING TO D/C PATIENT BACK TO [facility]. REPORT GIVEN TO AUTO COLLISION REPAIR INSTRUCTOR NURSE FOR NIRMALA.
[2016-11-06] MEDS: MORPHINE SULFATE INJ 2 MG/ML DISP.SYRIN IV PRN (19:57)
[2016-11-06] MEDS ORDERED: hydrALAZINE HCL IV 20 MG VIAL IV ONE (20:00)
--- NOTE | 2016-11-06 20:01 | NUR ---
TELE-1/CLIENT SUPPORT ASSOCIATE NEW ORDERS RECEIVED AND CARRIED OUT FROM [facility].
[2016-11-06 20:03] VITALS: BP 161/76
--- NOTE | 2016-11-06 20:28 | NUR ---
PT OFF THE FLOOR WITH EMS FOR TRANSFER TO [facility].
== END 2016-11-06 20:54 | DRG 871 ==
LOC: ER 14:48 → TELE1 16:38 → TELE-TD 17:45 → TELE1 10-31 10:22 → MEDSG1 11-01 16:45
PROVIDERS: ADMIT Internal Medicine; ATTEND Internal Medicine
PROC: 05H533Z Insertion of Infusion Device into Right Subclavian Vein, Percutaneous Approach (ICD-10-PCS; principal; 2016-11-03)
DX: A41.9 Sepsis, unspecified organism (principal); J69.0 Pneumonitis due to inhalation of food and vomit; I44.2 Atrioventricular block, complete; T68.XXXA Hypothermia, initial encounter; G92 Toxic encephalopathy; J15.6 Pneumonia due to other Gram-negative bacteria; R53.2 Functional quadriplegia; R13.10 Dysphagia, unspecified; A86 Unspecified viral encephalitis; E46 Unspecified protein-calorie malnutrition; N39.0 Urinary tract infection, site not specified; R65.20 Severe sepsis without septic shock; L89.629 Pressure ulcer of left heel, unspecified stage; F03.90 Unspecified dementia, unspecified severity, without behavioral disturbance, psychotic disturbance, mood disturbance, and anxiety; D64.9 Anemia, unspecified; E66.9 Obesity, unspecified; E78.5 Hyperlipidemia, unspecified; F09 Unspecified mental disorder due to known physiological condition; G40.909 Epilepsy, unspecified, not intractable, without status epilepticus; I11.9 Hypertensive heart disease without heart failure; I25.10 Atherosclerotic heart disease of native coronary artery without angina pectoris; I71.4 Abdominal aortic aneurysm, without rupture; N20.0 Calculus of kidney; K59.00 Constipation, unspecified; K21.9 Gastro-esophageal reflux disease without esophagitis; N40.1 Benign prostatic hyperplasia with lower urinary tract symptoms; Y95 Nosocomial condition; Z51.5 Encounter for palliative care; Z66 Do not resuscitate; Z79.82 Long term (current) use of aspirin; Z79.899 Other long term (current) drug therapy; Z86.61 Personal history of infections of the central nervous system; Z87.442 Personal history of urinary calculi; Z88.1 Allergy status to other antibiotic agents; Z88.8 Allergy status to other drugs, medicaments and biological substances; D63.8 Anemia in other chronic diseases classified elsewhere; E03.9 Hypothyroidism, unspecified; B96.89 Other specified bacterial agents as the cause of diseases classified elsewhere; L89.891 Pressure ulcer of other site, stage 1; Z68.29 Body mass index [BMI] 29.0-29.9, adult
CPT/HCPCS: 36415; 70450-TC; 71010-TC; 80048-TC; 80053-TC; 80076-TC; 80156-TC; 80170-TC; 80202-TC; 81000-TC; 82140-TC; 82553-TC; 82962-TC; 83540-TC; 83605-TC; 83735-TC; 84100-TC; 84443-TC; 84484-TC; 85025-TC; 85610-TC; 85730-TC; 87040-TC; 87081-TC; 87086-TC; 87186-TC; 92526; 92611-TC; 93307-TC; 95819-TC; A4606; A6402; A9563; C9113; J0360; J1580; J1953; J2060; J2185; J2270; J2543; J2930; J3370; J3475; J3480; J3490; J7030; J7040; J7042; J7060; J7070; Z7610